=== PATIENT | male | born 1980 | race Caucasian/White ===

== ENCOUNTER 2022-11-01 08:09 | Outpatient (CLI) | payer OTHER, SELFPAY | END 2022-11-01 08:10 | disposition home or self-care (01) | LOC: NFLDREF 11-03 13:47 | PROVIDERS: PCP Family Medicine; Referring Provider Family Medicine; Visit Provider Family Medicine | DX: Z00.00 Encounter for general adult medical examination without abnormal findings (principal); E78.5 Hyperlipidemia, unspecified | CPT/HCPCS: 80053; 80061 ==

== ENCOUNTER 2023-06-14 15:45 | Outpatient (RCR) | payer OTHER, SELFPAY ==
--- NOTE | 2023-05-15 17:23 | PT.OPEX ---
PT [place] [facility] Eval PT [facility] Outpatient Eval Start: 05/15/23 14:22 Freq: Status: Active Protocol: Document 05/15/23 14:22 [facility] (Rec: 05/15/23 15:14 [facility] [id number]) E-signed By Nick Boyd, PT Physical Therapy Outpatient Evaluation Insurance Information Insurance Name [employer] Medical Diagnosis Left shoulder pain Treating Diagnosis Left shoulder pain M25.512 Left shoulder stiffness M25.[address] Aldo Peterson Subjective Subjective Pt with left shoulder pain x 9 months after playing basketball. It got better for awhile and then he reaggravated it a couple weekends ago lifting 100# weights for a truck pull. It is starting to get better but is still painful. Aggravating: sleeping on left side, reaching overhead, lifting out to the side w/ extended arm Relieving: rest Pain Comments Left shoulder: Date of Last Physician Visit 05/09/23 Current Work Status Tree Surgeon Occupation Desk job for [employer] Preferred Name Jamey Precautions Therapy Limitations/Systems Review Not Limited Objective Other/Pertinent Objective AROM: R shoulder: WNL L shoulder: Flexion: WNL, end range pain Abduction: WNL but arc of pain ~100-130 deg ER: WNL, painfree IR: WNL, mild end range pain Strength: R UE: WNL L UE: strong but mild pain with ER and abduction strong elbow flexion, mild anterior shoulder pain Special tests: Neers + H-K: + Empty can: negative AC joint compression: negative [place]'s: negative Palpation: +TTP biceps tendon short head, coracoid process, supraspinatus non tender over deltoid bursa, AC joint GH joint mobs: pain free and normal mobility Posture: rounded shoulders/ increased thoracic kyphosis, left scapular winging inferior border scapulohumeral dyskinesia + Functional Test Performed & Score Overhead reach: left shoulder end range pain Reach out to side with extended elbow: mild pain in shoulder Assessment Assessment/Impression 42 year old male with left shoulder pain, signs & symptoms consistent with subacromial pain syndrome likely due to supraspinatus tendinopathy, biceps short head tendonitis and postural dysfunction. Primary objective findings include mild pain with end range flexion, abduction and IR, pain with resisted shoulder ER and abduction and elbow flexion, positive impingement tests and palpation tenderness of supraspinatus and left biceps short head tendon/coracoid insertion. Patient to benefit from skilled PT to safely progress in a HEP to facilitate painfree left shoulder ROM & strength to resume PLOF. Primary Functional Limitations overhead reach and out to the side, heavy lifting, sleep on left side, playing catch with son Plan of Care Rehabilitation Potential Excellent Physical Therapy Goals In 4-6 weeks, patient will: 1) Report pain max of 1/10 left shoulder with overhead and reach out to the side activities 2) Be able to lift 10# bag of groceries with left arm painfree 3) Play catch with his son, painfree left shoulder 4) Be I with HEP to continue progression toward personal goals and for self-management of residual symptoms Coordination/Communication With Referral Source Treatment Plan/Direct Interventions Manual Therapy,Neuromuscular Re-ed,Self-Care/Home Management,Therapeutic Exercises Direct Interventions Clarification Left shoulder ROM/srength, Comments scap stabilization, postural ed Frequency/Duration 2-4 visits over 4-6 weeks Patient Will Be Discharged From Therapy Independent w/HEP, Independently Progressing Evaluation Billing Untimed Code Treatment Minutes 25 Complexity Low Certification Information Physician Comment/Change : Physician NPI Number #
== END 2023-06-14 16:53 | disposition home or self-care (01) ==
PROVIDERS: PCP Family Medicine; Visit Provider Family Medicine
DX: M25.512 Pain in left shoulder (principal); M25.612 Stiffness of left shoulder, not elsewhere classified; Z51.89 Encounter for other specified aftercare
CPT/HCPCS: 97110; 97140; 97161

== ENCOUNTER 2023-11-12 07:32 | Outpatient (CLI) | payer OTHER, SELFPAY | END 2023-11-12 07:33 | disposition home or self-care (01) | LOC: NFLDREF 11-14 11:29 | PROVIDERS: PCP Family Medicine; Referring Provider Family Medicine; Visit Provider Family Medicine | DX: E78.5 Hyperlipidemia, unspecified (principal); Z13.1 Encounter for screening for diabetes mellitus | CPT/HCPCS: 80061; 82947 ==